=== PATIENT | female | born 1955 | race Caucasian/White ===

== ENCOUNTER 2020-02-18 17:43 | Emergency (ER) | payer BC ==
[2020-02-18 18:04] VITALS: TEMP 98; BMI 28.3
--- NOTE | 2020-02-18 18:04 | PDOC ---
Rapid Medical Evaluation Time Seen by Provider: 02/18/20 18:01 Medical Evaluation: 02/18/20 18:01 I performed a brief in-person evaluation of this patient. Pt is a 64 y/o female who presents to the ED with complaint of elevated BP all week. Saw her primary doctor and was told she needs to see a search consultant. The patient admits to having pain in her back. Denies any CP, sob, visual changes, numbness, tingling, JEAN-BAPTISTE. Pertinent physical exam findings: speaking in full sentences, nontoxic, BP 204/110 in triage. S1S2. I have ordered the following: cardiac labs, cxr, ekg Patient to proceed to ED for further evaluation. Discharge Disposition - Diagnosis Hypertension - Referrals - Patient Instructions - Post Discharge Activity
[2020-02-18 18:39] LABS: BASO % 1.4 % (0-2.0); EOS % 1.1 % (0-4.5); HEMATOCRIT 40.5 % (32.4-45.2); HEMOGLOBIN 13.6 GM/dL (10.7-15.3); LYMPH % 21.4 % (8-40); MCH 29.2 pg (25.7-33.7); MCHC 33.5 g/dl (32.0-36.0); MEAN CELL VOLUME 87.3 fl (80-96); MEAN PLT VOLUME 8.6 fl (7.5-11.1); MONO % 5.8 % (3.8-10.2); NEUT % 70.3 % (42.8-82.8); PLATELET COUNT 397 K/MM3 (134-434); RBC 4.64 M/mm3 (3.60-5.2); RDW 14.1 % (11.6-15.6); WHITE BLOOD COUNT 11.6 K/mm3 (4.0-10.0)
[2020-02-18 18:52] LABS: INR 0.99 (0.83-1.09); PROTHROMBIN TIME (PATIENT) 11.7 SEC (9.7-13.0)
[2020-02-18 18:55] LABS: ACTIVATED PTT 32.2 SECONDS (25.2-36.5)
[2020-02-18] MEDS ORDERED: NITROGLYCERIN SUBLINGUAL 1/150 0.4 MG TAB SL ONE (19:04)
--- NOTE | 2020-02-18 19:13 | PDOC ---
History of Present Illness - General Chief Complaint: Blood Pressure Problem Stated Complaint: HIGH BP Time Seen by Provider: 02/18/20 18:01 History Source: Patient, Old Records Exam Limitations: No Limitations - History of Present Illness Initial Comments: 02/18/20 19:13 Landy Byers is a 64F with PMH HTN here for elevated BP. Past History - Medical History Allergies/Adverse Reactions: Allergies Allergy/AdvReac Type Severity Reaction Status Date / Time Penicillins Allergy Verified 02/18/20 18:04 Home Medications: Ambulatory Orders Lisinopril 20 mg PO DAILY 02/18/20 Metoprolol Tartrate [Lopressor -] 50 mg PO DAILY 02/18/20 COPD: No HTN: Yes - Psycho-Social/Smoking History Smoking History: Never smoked - Substance Abuse Hx (Audit-C & DAST Scrn) How often the patient has a drink containing alcohol: Never Score: In Men: 4 or > Positive; In Women: 3 or > Positive: 0 Screen Result (Pos requires Nsg. Audit-10AR): Negative *Physical Exam - Vital Signs Last Vital Signs Temp Pulse Resp BP Pulse Ox 98 F 107 H 18 204/110 H 97 02/18/20 18:02 02/18/20 18:02 02/18/20 18:02 02/18/20 18:02 02/18/20 18:02 ED Treatment Course - LABORATORY CBC & Chemistry Diagram: 02/18/20 18:30 02/18/20 18:30 - ADDITIONAL ORDERS Additional order review: Laboratory Results 02/18/20 18:30 PT with INR 11.70 INR 0.99 PTT (Actin FS) 32.2 02/18/20 18:30 RBC 4.64 MCV 87.3 MCHC 33.5 RDW 14.1 MPV 8.6 Neutrophils % 70.3 Lymphocytes % 21.4 Monocytes % 5.8 Eosinophils % 1.1 Basophils % 1.4 Discharge - Discharge Information Clinical Impression/Diagnosis: Hypertension - Follow up/Referral Referrals: Ban Umana MD [Primary Care Provider] - - Patient Discharge Instructions - Post Discharge Activity
[2020-02-18 19:20] LABS: ALK PHOS 73 U/L (45-117); ANION GAP 9 MMOL/L (8-16); BILIRUBIN,TOTAL 0.4 mg/dL (0.2-1); BLOOD UREA NITROGEN 8.5 mg/dL (7-18); CALCIUM 10.8 mg/dL (8.5-10.1); CHLORIDE 111 mmol/L (98-107); CO2 24 mmol/L (21-32); CREATININE 0.8 mg/dL (0.55-1.3); GLUCOSE,RANDOM 109 mg/dL (74-106); MAGNESIUM 2.1 mg/dL (1.8-2.4); POTASSIUM 3.5 mmol/L (3.5-5.1); SGOT/AST 16 U/L (15-37); SGPT/ALT 21 U/L (13-61); SODIUM 144 mmol/L (136-145); TOT PROT 7.8 g/dl (6.4-8.2)
--- NOTE | 2020-02-18 19:23 | PDOC ---
Attending Attestation - Resident Resident Name: Davis White - ED Attending Attestation I have performed the following: I have examined & evaluated the patient, The case was reviewed & discussed with the resident, I agree w/resident's findings & plan - HPI HPI: 02/18/20 21:45 Pt states that she felt like her heart was pounding. States that her BP is not well controlled. It started earlier in the week when her BP was 90s over 60 and she skipped a dose of her lisinopril. Then she returned to her usual dose and she states that her BP was elevated since that time. 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 Pt has a fam hx of HTN; dad has HTN Pt states that she lost 25 lbs during the covid months. Pt has no stress and no other change that could be causing her HTN. Pt has no chest pain and no SOB. - Physicial Exam PE: 02/18/20 21:48 Agree with resident exam Pt has normal heart and lungs Abd soft NT ND No flank pain no C/C/E Afebrile no rashes. BP is normal - Medical Decision Making 02/18/20 20:29 Pt's first set of labs are normal. EKG NSR CXR normal vitals improved. 02/18/20 23:44 Pt has normal card enz. Pt will follow with PMD and make a cardiology appt and get echo and stress test. 02/18/20 23:48 Pt understands that she can return for worsening chest pain. Heart Score/ECG Review - ECG Intrepretation Rhythm: Regular Rhythm - [place]: Normal - P and FL Prominent R with upright T in V1 (true posterior RI): No Delta Wave(s) Present: No WPW: No - QRS Poor R Wave Progression: No Q Wave Present: No - ST and T Early Repolarization: No Non Specific ST-T Wave changes: No Flattened T Waves: No - ECG Impressions Normal ECG: Yes Non-specific ST Elevation: No Ischemic Changes: No Bradycardia: No Torsades abbi Pointes: No WPW: No Discharge - Discharge Information Problems reviewed: Yes Clinical Impression/Diagnosis: Hypertension Qualifiers: Hypertension type: unspecified Qualified Code(s): I10 - Essential (primary) hypertension Condition: Improved Disposition: HOME - Follow up/Referral Referrals: Yogesh Roca [Other] Ban Umana MD [Primary Care Provider] - - Patient Discharge Instructions Additional Instructions: You came to the ED because your blood pressure was high at home, and you felt some pounding in your chest. - Post Discharge Activity
[2020-02-18] MEDS ORDERED: LISINOPRIL 20 MG TABLET (FP) PO ONE (19:24)
[2020-02-18] MEDS ORDERED: NITROGLYCERIN SUBLINGUAL 1/150 0.4 MG TAB ONE (19:30)
[2020-02-18] MEDS ORDERED: LISINOPRIL 20 MG TABLET (FP) ONE (19:30)
--- NOTE | 2020-02-18 22:24 | PDOC ---
History of Present Illness - General Chief Complaint: Blood Pressure Problem Stated Complaint: HIGH BP Time Seen by Provider: 02/18/20 18:01 - History of Present Illness Initial Comments: 64 yo F h/o HTN p/w high blood pressure and pounding in her chest. She states her blood pressure has been oscillating high and low since Wednesday, when she felt lightheaded and discovered her BP was 90/50. 02/18/20 22:23 CONSTITUTIONAL: Absent: fever, no chills, no fatigue EYES: Absent: visual changes ENT: Absent: ear pain, no sore throat CARDIOVASCULAR: Absent: chest pain, no palpitations RESPIRATORY: Absent: cough, no SOB GI: Absent: abdominal pain, no nausea, no vomiting, no constipation, no diarrhea GENITOURINARY: Absent: dysuria, no frequency, no hematuria MUSKULOSKELETAL: Absent: back pain, no arthralgia, no myalgia SKIN: Absent: rash NEURO: Absent: headache PE: CONSTITUTIONAL: NAD SKIN: warm, dry, pink NEURO: Mental status: The patient alert and is oriented x3. Cranial nerves: Cranial nerves II through XII are intact Fundoscopic exam normal Motor: The upper extremities are 5 over 5 in all muscle groups. The lower extr emities are 5 over 5 in all muscle groups. Sensation: Sensation is intact to light touch throughout. Cerebellar: Ioyasj-[id number]-zqix is normal in both upper extremities. Ziah-epwx-lhud is normal in both lower extremities. Gait: Normal. Heel and toe walking are normal. Tandem gait is normal. a/p 64yoF w/ HTN w/ pounding in her chest and hypotension today. Plan cardiac workup 03/11/20 02:25 Past History - Medical History Allergies/Adverse Reactions: Allergies Allergy/AdvReac Type Severity Reaction Status Date / Time Penicillins Allergy Verified 02/18/20 18:04 Home Medications: Ambulatory Orders Lisinopril 20 mg PO DAILY 02/18/20 Metoprolol Tartrate [Lopressor -] 50 mg PO DAILY 02/18/20 COPD: No HTN: Yes - Psycho-Social/Smoking History Smoking History: Never smoked - Substance Abuse Hx (Audit-C & DAST Scrn) How often the patient has a drink containing alcohol: Never Score: In Men: 4 or > Positive; In Women: 3 or > Positive: 0 Screen Result (Pos requires Nsg. Audit-10AR): Negative *Physical Exam - Vital Signs Last Vital Signs Temp Pulse Resp BP Pulse Ox 98 F 69 16 157/94 97 02/18/20 18:02 02/18/20 20:18 02/18/20 20:18 02/18/20 20:18 02/18/20 20:18 ED Treatment Course - LABORATORY CBC & Chemistry Diagram: 02/18/20 18:30 02/18/20 18:30 - ADDITIONAL ORDERS Additional order review: Laboratory Results 02/18/20 02/18/20 18:30 18:30 PT with INR 11.70 INR 0.99 PTT (Actin FS) 32.2 Sodium 144 Potassium 3.5 Chloride 111 H Carbon Dioxide 24 Anion Gap 9 BUN 8.5 Creatinine 0.8 Est GFR (CKD-EPI)AfAm 91.58 Est GFR (CKD-EPI)NonAf 79.01 Random Glucose 109 H Calcium 10.8 H Magnesium 2.1 Total Bilirubin 0.4 AST 16 ALT 21 Alkaline Phosphatase 73 Creatine Kinase 60 Troponin I < 0.02 Total Protein 7.8 Albumin 4.0 02/18/20 18:30 RBC 4.64 MCV 87.3 MCHC 33.5 RDW 14.1 MPV 8.6 Neutrophils % 70.3 Lymphocytes % 21.4 Monocytes % 5.8 Eosinophils % 1.1 Basophils % 1.4 - Medications Given in the ED: ED Medications Discontinued Medications Generic Name Dose Route Start Last Admin Trade Name Freq PRN Reason Stop Dose Admin Lisinopril 20 mg 02/18/20 19:24 02/18/20 19:49 Prinivil PO 02/18/20 19:25 20 mg ONCE ONE Administration Nitroglycerin 0.4 mg 02/18/20 19:04 02/18/20 19:48 Nitrostat - SL 02/18/20 19:05 0.4 mg ONCE ONE Administration Discharge - Discharge Information Problems reviewed: Yes Clinical Impression/Diagnosis: Hypertension Qualifiers: Hypertension type: unspecified Qualified Code(s): I10 - Essential (primary) hypertension Condition: Improved Disposition: HOME - Admission No - Follow up/Referral Referrals: Ban Umana MD [Primary Care Provider] - Yogesh Roca [Other] - Patient Discharge Instructions Additional Instructions: You came to the ED because your blood pressure was high at home, and you felt some pounding in your chest. In the ED, we gave you Nitro and another Lisinopril pill. We also checked an EKG and your blood work for signs of damage to your heart. Your blood labs were normal. We also monitored your blood pressure. You must return to the Emergency Department with any new complaints, if your symptoms persist and do not improve or if you develop any other new or worsening concerns. As discussed, please call to follow up with your director digital analytics, Dr. Yogesh Roca, tomorrow to discuss what happened to you in the emergency room, and make sure you are being looked after and taken care of. Your emergency room visit is not complete without this follow up appointment. Thank you for coming to the [facility]. We hope you feel better soon! - Post Discharge Activity
[2020-02-19 00:23] VITALS: BP 190/89; PULSE 78
--- NOTE | 2020-02-19 09:36 | EKG ---
Test Reason : Blood Pressure : / mmHG Vent. Rate : 082 BPM Atrial Rate : 082 BPM P-R Int : 160 ms QRS Dur : 088 ms QT Int : 380 ms P-R-T Axes : 035 -17 049 degrees QTc Int : 443 ms NORMAL SINUS RHYTHM NONSPECIFIC ST ABNORMALITY ABNORMAL ECG NO PREVIOUS ECGS AVAILABLE Confirmed by Guido To ([id number]) on 02/19/2020 9:35:37 AM Referred By: Confirmed By:Guido To
== END 2020-02-19 00:23 | disposition home or self-care (01) ==
LOC: JER 17:43
DX: I10 Essential (primary) hypertension (principal)
CPT/HCPCS: 36415; 71046-TC-FY; 80053; 82550; 83735; 84484; 85025; 85610; 85730; 93005; 93010; 99285-25